=== PATIENT | female | born 1965 | race Caucasian/White ===

== ENCOUNTER 2021-11-05 14:41 | Emergency (ER) | payer SELFPAY ==
[2021-11-05] MEDS ORDERED: SODIUM CHLORIDE 0.9% 1000 ML 1,000 ML IV ONE (15:14)
[2021-11-05] MEDS ORDERED: PANTOPRAZOLE 40 MG INJ IV ONE (15:14)
[2021-11-05 15:15] VITALS: BP 120/71
--- NOTE | 2021-11-05 15:32 | Emergency Department Report ---
ED Abdominal Pain HPI - General Chief Complaint: Abdominal Pain Stated Complaint: n/v abdominal pain Time Seen by Provider: 11/05/21 14:59 Source: EMS Mode of arrival: Stretcher Limitations: No Limitations - History of Present Illness Initial Comments: Patient is a 56-year-old female with history of esophageal spasm presenting today with complaint of nausea and vomiting associated with her esophageal spasms. States she sees a GI specialist who placed her on Protonix for her spasms. States she is currently unable to take her medications due to the nausea and vomiting. Symptoms began yesterday. Severity scale (0 -10): 6 - Related Data Allergies Allergy/AdvReac Type Severity Reaction Status Date / Time No Known Allergies Allergy Verified 11/05/21 14:48 ED Review of Systems ROS: Stated complaint: n/v abdominal pain Other details as noted in HPI Constitutional: no symptoms reported Respiratory: denies: cough, shortness of breath, wheezing Cardiovascular: denies: chest pain, palpitations Gastrointestinal: nausea, vomiting Genitourinary: denies: urgency, dysuria, discharge Musculoskeletal: denies: back pain, joint swelling, arthralgia Skin: denies: rash, lesions Neurological: denies: headache, weakness, paresthesias Psychiatric: denies: anxiety, depression ED Past Medical Hx - Past Medical History Previous Medical History?: Yes Hx GERD: Yes - Surgical History Past Surgical History?: No ED Physical Exam - General Limitations: No Limitations General appearance: alert, in no apparent distress - Head Head exam: Present: atraumatic, normocephalic - Respiratory Respiratory exam: Present: normal lung sounds bilaterally. Absent: respiratory distress - Cardiovascular Cardiovascular Exam: Present: regular rate, normal rhythm, normal heart sounds - GI/Abdominal GI/Abdominal exam: Present: soft. Absent: distended, tenderness - Rectal Rectal exam: Present: deferred - Neurological Exam Neurological exam: Present: alert, oriented X3 - Psychiatric Psychiatric exam: Present: normal affect, normal mood - Skin Skin exam: Present: warm, dry, intact, normal color ED Course Vital Signs 11/05/21 11/05/21 15:14 15:15 Temperature 98.7 F Pulse Rate 89 Respiratory 20 Rate Blood Pressure 120/71 [Left] O2 Sat by Pulse 98 98 Oximetry ED Medical Decision Making - Lab Data Result diagrams: 11/05/21 15:26 07/16/22 15:26 - Medical Decision Making Patient given IV Protonix. Labs grossly unremarkable. On reassessment patient sleeping comfortably in bed. Upon awakening states she feels much better. S table for discharge home with return precautions. Critical care attestation.: If time is entered above; I have spent that time in minutes in the direct care of this critically ill patient, excluding procedure time. ED Disposition Clinical Impression: Esophageal spasm Disposition: 01 HOME / SELF CARE / HOMELESS Is pt being admited?: No Condition: Stable Instructions: Abdominal Pain (ED), Esophageal Spasm Additional Instructions: Please follow-up with your primary doctor and/or GI specialist as needed. You may return if your symptoms worsen. Time of Disposition: 17:47
[2021-11-05 15:56] LABS: Alanine Aminotransferase 15 units/L (7-56); Albumin 4.7 g/dL (3.9-5); Basophils % (Auto) 0.3 % (0.0-1.8); Blood Urea Nitrogen 19 mg/dL (7-17); Calcium 9.7 mg/dL (8.4-10.2); Eosinophils % (Auto) 0.1 % (0.0-4.3); Hematocrit 42.8 % (30.3-42.9); Hemoglobin 14.6 gm/dl (10.1-14.3); Hemolysis Index 16; Lymphocytes % (Auto) 11.2 % (13.4-35.0); Mean Corpuscular HGB Conc 34 % (30-34); Mean Corpuscular Volume 92 fl (79-97); Monocytes # (Auto) 0.7 K/mm3 (0.0-0.8); Platelet Count 227 K/mm3 (140-440); Red Blood Count 4.66 M/mm3 (3.65-5.03); Red Cell Distribution Width 14.4 % (13.2-15.2)
[2021-11-05 15:58] LABS: BUN/Creatinine Ratio 27; Bilirubin,Direct < 0.2 mg/dL (0-0.2)
== END 2021-11-05 18:20 | disposition home or self-care (01) ==
LOC: ED 14:41
DX: K22.4 Dyskinesia of esophagus (principal); K21.9 Gastro-esophageal reflux disease without esophagitis
CPT/HCPCS: 36415; 80048; 80076; 83690; 85025; 96361; 96374; 99283; C9113; J7030